=== PATIENT | female | born 1950 | race Caucasian/White ===

== ENCOUNTER 2018-10-04 18:55 | Emergency (ER) | payer OTHER ==
[2018-10-04] MEDS ORDERED: ASPIRIN 81 MG CHEWABLE TABLETS PO ONE (19:05)
--- NOTE | 2018-10-04 19:05 | PDOC ---
Rapid Medical Evaluation Chief Complaint: Chest Pain Time Seen by Provider: 10/04/18 19:03 Medical Evaluation: 10/04/18 19:03 HPI: Cp which radiates to back x 2 days hx of costochondritis PE: No distress ORDERS: Cardiac work up Discharge Disposition - Diagnosis Chest pain - Referrals - Patient Instructions - Post Discharge Activity
[2018-10-04 19:14] VITALS: BMI 29.0
[2018-10-04] MEDS ORDERED: ASPIRIN 81 MG CHEWABLE TABLETS ONE (22:01)
[2018-10-04 22:25] LABS: BASO % 0.4 % (0-2.0); EOS % 1.6 % (0-4.5); HEMATOCRIT 37.8 % (32.4-45.2); HEMOGLOBIN 12.9 GM/dL (10.7-15.3); LYMPH % 41.7 % (8-40); MCH 29.6 pg (25.7-33.7); MCHC 34.1 g/dl (32.0-36.0); MEAN CELL VOLUME 86.8 fl (80-96); MEAN PLT VOLUME 7.3 fl (7.5-11.1); MONO % 6.5 % (3.8-10.2); NEUT % 49.8 % (42.8-82.8); PLATELET COUNT 231 K/MM3 (134-434); RBC 4.36 M/mm3 (3.60-5.2); RDW 13.9 % (11.6-15.6); WHITE BLOOD COUNT 7.9 K/mm3 (4.0-10.0)
--- NOTE | 2018-10-04 22:28 | PDOC ---
History of Present Illness - General Chief Complaint: Chest Pain Stated Complaint: CHEST PAIN Time Seen by Provider: 10/04/18 19:03 History Source: Patient, Spouse ( present at bedside.) Exam Limitations: No Limitations - History of Present Illness Initial Comments: HPI: 68 y/o female presenting to [facility] ER complaining of three days of substernal chest pain radiating to left arm, throat, and back. Described as a heaviness without SOB or exertional component. Initially intermittent but became constant after waking up this morning. Improved with OTC Tylenol yesterday but not today. Endorses h/o of costochondritis but denies recent illness. Follows with data warehouse administrator because of brothers history. Last seen last year. Echo performed at that time was normal. 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 Is constantly lifting and twisting while moving her mother. Family Hx: - Brother has cardiomyopathy and secondary CHF PCP: Dr. Subramanian Zinc Skimmer: Dr. Hazel Kearns Hx: - Former traffic technician at [employer] Medical Hx: - Pt denies past medical history. Denies taking prescription or OTC medications. Surgical Hx: - - Cholecystectomy Review of Systems: In addition to that documented in the HPI above, the additional ROS was obtained : Constitutional: Denies fevers or chills Head: Denies vision changes ENMT: Denies sore throat CV: Per HPI Resp: Denies SOB, cough, or sneezing GI: Denies abd pain, vomiting, diarrhea, burning sensation in throat, or metallic taste in mouth : Denies painful urination MSK: Denies recent trauma Skin: Denies new rashes Neuro: Denies new numbness or tingling or weakness Endocrine: Denies polyuria Heme: Denies bleeding or bruising Physical Examination: Constitutional: Well-developed, well-nourished adult female in no acute distress or obvious discomfort. Found semi-fowlers on hospital bed. Alert and oriented x4. Answered all questions appropriately and completely. Speech was non -labored, non-pressured. Head: Normocephalic. No obvious external signs of trauma. Neck: Supple, trachea is midline. Cardiovascular / Chest: Regular rate and regular rhythm. No murmur, rubs, clicks , or gallops. Peripheral pulses: radial pulses full. Tenderness to palpation of left anterior and posterior chest juares. Pain made worse with empty beer can test on left arm. No skin lesions. Respiratory: Breathing unlabored. Equal chest rise and fall. Clear to auscultation bilaterally. No stridor, no wheezing, no rhonchi. Gastrointestinal: abdomen is soft, non-tender, non-distended. Neuro: Alert and oriented. Moving all four extremities spontaneously. Gait normal. Skin: Warm, dry, and intact. Psych: Affect: appropriate. Mood: normal. MDM: *Reviewed vital signs, nursing notes, and prior visit documentation (if available). HEART Score for Major Cardiac Events RESULT SUMMARY: 2 points Low Score (0-3 points) Risk of MACE of 0.9-1.7%. 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 Radiates to back, throat, and left arm. No significant cardiac history. Familial history significant for brother with cardiomyopathy. Afebrile. Vitals unremarkable for hypotension or tachycardia. Physical exam as described above. Low suspicion for ACS, pneumothorax, pneumonia, or costochondritis. 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 Will obtain cardiac workup. Administered ASA by RME. EKG unremarkable for ischemic findings. Initial troponin not elevated. Will not repeat given timeline of events >3hrs since onset and since change in sensation. CBC unremarkable for leukocytosis or anemia. CMP unremarkable for significant electrolyte derangements. Coags within normal limits. CXR unremarkable for acute cardiopulmonary findings per ED wet read. Radiology report to follow. Pt reassessed and reports feeling better after burping. Given low HEART score, will encourage pt to f/u outpatient with data warehouse administrator within next 1-2 days. Pt agrees to call first thing in the morning. Answered all questions. Return precautions provided. Pt provided copies of todays results. Pt and pts expressed verbal understanding and agreement with plan to discharge home with close outpatient f/u. Raymond Barillas M.D., PGY2 Emergency Medicine Resident Past History - Past Medical History Allergies/Adverse Reactions: Allergies Allergy/AdvReac Type Severity Reaction Status Date / Time No Known Allergies Allergy Verified 07/23/19 19:11 - Suicide/Smoking/Psychosocial Hx Smoking History: Never smoked Hx Alcohol Use: No Drug/Substance Use Hx: No *Physical Exam - Vital Signs Last Vital Signs Temp Pulse Resp BP Pulse Ox 97.4 F L 74 18 143/70 99 10/04/18 19:11 10/04/18 19:11 10/04/18 19:11 10/04/18 19:11 10/04/18 19:11 ED Treatment Course - LABORATORY CBC & Chemistry Diagram: 10/04/18 22:12 10/04/18 22:12 - RADIOLOGY Radiology Studies Ordered: Category Date Time Status CHEST PA & LAT [RAD] Stat Radiology 10/04/18 22:19 Ordered - Medications Given in the ED: ED Medications Discontinued Medications Generic Name Dose Route Start Last Admin Trade Name Abelino PRN Reason Stop Dose Admin Aspirin 162 mg 10/04/18 19:05 10/04/18 21:50 Asa - PO 10/04/18 19:06 162 mg ONCE ONE Administration *DC/Admit/Observation/Transfer Diagnosis at time of Disposition: Chest pain Qualifiers: Chest pain type: unspecified Qualified Code(s): R07.9 - Chest pain, unspecified - Discharge Dispostion Disposition: HOME Condition at time of disposition: Improved Decision to Admit order: No - Referrals Referrals: Narciso Subramanian [Primary Care Provider] - Spenser Oliva MD [Staff Physician] - - Patient Instructions Printed Discharge Instructions: DI for Atypical Chest Pain Additional Instructions: You were seen tonight for chest pain. Your EKG, chest xray, and blood work were normal. Your symptoms are not likely to be from your heart or your lungs. It is likely muscular pain. Please follow up with your data warehouse administrator within the next 1-2 days. You will need to call to make an appointment. A copy of todays results are attached to this packet. Take it to the appointment so your doctor can review them. You can take over the counter Tylenol or Advil as needed for pain. Take as directed on the package insert. Do not exceed the recommended dosage. Go to the nearest emergency department if your condition worsens or you feel like you need additional emergency evaluation. Print Language: [place]IZ[place] - Post Discharge Activity
[2018-10-04 22:50] LABS: ALBUMIN 3.9 g/dl (3.4-5.0); ALK PHOS 68 U/L (45-117); ANION GAP 6 MMOL/L (8-16); BILIRUBIN,TOTAL 0.4 mg/dL (0.2-1); BLOOD UREA NITROGEN 22.5 mg/dL (7-18); CALCIUM 9.4 mg/dL (8.5-10.1); CHLORIDE 109 mmol/L (98-107); CO2 27 mmol/L (21-32); CREATININE 0.8 mg/dL (0.55-1.3); GLUCOSE,RANDOM 91 mg/dL (74-106); MAGNESIUM 2.4 mg/dL (1.8-2.4); POTASSIUM 4.1 mmol/L (3.5-5.1); SGOT/AST 18 U/L (15-37); SGPT/ALT 28 U/L (13-61); SODIUM 143 mmol/L (136-145); TOT PROT 7.4 g/dl (6.4-8.2)
--- NOTE | 2018-10-04 22:55 | PDOC ---
Documentation entered by Chriss Mera SCRIBE, acting as scribe for Ange Bryan MD. Ange Bryan MD: This documentation has been prepared by the Ede zarate Joel, SCRIBE, under my direction and personally reviewed by me in its entirety. I confirm that the documentation accurately reflects all work, treatment, procedures, and medical decision making performed by me. Attending Attestation - Resident Resident Name: BarillasRaymond - ED Attending Attestation I have performed the following: I have examined & evaluated the patient, The case was reviewed & discussed with the resident, I agree w/resident's findings & plan, Exceptions are as noted - HPI HPI: 10/04/18 22:16 The patient is a 68 year old female with no significant PMH who presents to the emergency department for intermittent chest pain over the past 2 weeks which has persisted over the past 2 days. The patient describes her chest pain as localized midsternally with radiation her back, throat, and arms bilaterally. She states she came in today as she was unable to sleep secondary to her chest pain and she is concerned in the context of her brothers extensive cardiac history. She notes she had an ECHO last year with Dr. Oliva which was normal. The patient denies shortness of breath, headache and dizziness. Denies fever, chills, nausea, vomit, diarrhea and constipation. Denies dysuria, frequency, urgency and hematuria. Allergies: NKA FMHx: Brother has history of cardiomyopathy & MT (s/p) biventricular pacemaker Past surgical history: None reported. Social history: No reported cigarette, alcohol, or drug use. PCP/Cardio: Dr. Oliva - Physicial Exam PE: 10/04/18 22:16 GENERAL: Awake, alert, and fully oriented, in no acute distress HEAD: No signs of trauma EYES: PERRLA, EOMI, sclera anicteric, conjunctiva clear ENT: Auricles normal inspection, hearing grossly normal, nares patent, oropharynx clear without exudates. Moist mucosa NECK: Normal ROM, supple, no lymphadenopathy, JVD, or masses LUNGS: Breath sounds equal, clear to auscultation bilaterally. No wheezes, and no crackles HEART: Regular rate and rhythm, normal S1 and S2, no murmurs, rubs or gallops ABDOMEN: Soft, nontender, normoactive bowel sounds. No guarding, no rebound. No masses EXTREMITIES: Normal range of motion, no edema. No clubbing or cyanosis. No cords, erythema, or tenderness NEUROLOGICAL: Cranial nerves II through XII grossly intact. Normal speech, normal gait - Medical Decision Making 10/05/18 00:13 eKG is normal sinus rhythm with no evidence of acute ischemia and her cardiac enzymes are negative Patient had a normal echo done last year. She does have a manufacturing sales representative she can follow up with Impression atypical chest pain. Plan discharge home
[2018-10-05 01:16] VITALS: BP 118/70; PULSE 78; TEMP 98.6
--- NOTE | 2018-10-05 08:18 | EKG ---
Test Reason : Blood Pressure : / mmHG Vent. Rate : 070 BPM Atrial Rate : 070 BPM P-R Int : 150 ms QRS Dur : 086 ms QT Int : 398 ms P-R-T Axes : 048 026 067 degrees QTc Int : 429 ms NORMAL SINUS RHYTHM NORMAL ECG NO PREVIOUS ECGS AVAILABLE Confirmed by ELIANA POP, ZBIGNIEW ([id number]) on 10/05/2018 8:17:41 AM Referred By: Confirmed By:ZBIGNIEW MONROY MD
== END 2018-10-05 01:17 | disposition home or self-care (01) ==
LOC: JER 18:55
DX: R07.89 Other chest pain (principal)
CPT/HCPCS: 36415; 71046-TC-FY; 80053; 82550; 83735; 84484; 85025; 85730; 93005; 93010; 99283-25